=== PATIENT | female | born 1950 | race Caucasian/White ===

== ENCOUNTER 2018-05-17 11:15 | Emergency (ER) | payer OTHER ==
[~2018-05-17] VITALS: Ht 162.6 cm; Wt 84.8 kg
--- NOTE | ~2018-05-17 | EKG ---
[place] [address] [facility] [place] [address] ELECTROCARDIOGRAM REPORT Name: MELISSA WATSON Mehran Room #: [facility]#: [id number] Admission: 05/17/18 Attend Phys: Discharge: 05/17/18 Date of : 50 Report #: [id number] THIS REPORT FOR: //name// [facility] ED Test Date: 2018-05-17 Test Time: 11:20:41 Pat Name: MELISSA WATSON Department: Room: Gender: F Site Administrator: 12 : 1950 Requested By: Arsen Clark Order Number: [id number] MD: Nick Youngblood Measurements Intervals [place] Rate: 77 P: 71 OK: 193 QRS: 64 QRSD: 103 T: 37 QT: 389 QTc: 441 Interpretive Statements Sinus rhythm Compared to ECG 01/21/2012 07:30:29 First degree AV block no longer present Electronically Signed On 05-18-2018 13:47:39 CDT by Nick Youngblood [email or web address] <ELECTRONICALLY SIGNED> By: Nick Youngblood MD, [facility] 05/18/18 1347 1120 1120 Nick Youngblood MD, FACC /EPI
[~2018-05-17 11:15] MED LIST: ADULT LOW DOSE81 MG PO; ALLEGRA ALLERG180 MG PO; AMARYL2 MG PO; BUTALB-APAP-CA1 EACH PO; CARDURA2 MG PO; FELDENE20 MG PO; FISH OIL 1,001000 M1 PO; GLUCOPHAGE500 MG PO; HYDROCODON-ACE1 EAC5 PO; HYDROCODON-ACE1 EAC7 PO; LANSOPRAZOLE30 MG PO; LEVOTHROID125 MCG PO; LISINOPRIL PO; LISINOPRIL-HCT1 EACH PO; LYRICA 75 MG CA75 MG PO; MAGOX 400400 MG PO; NABUMETONE 500500 M1 PO; NAPROSYN500 MG PO; NEURONTIN 300300 M1 PO; NIASPAN ER 101000 M1 PO; NORCO 5-325 TA1 EACH; ROBAXIN 750 MG750 M1 PO; TOPAMAX100 MG PO; VERAPAMIL ER240 MG PO; VIACTIV MULTI-1 EACH PO
[2018-05-17 11:43] LABS: HEMATOCRIT 36.6 % (37.0-47.0); HEMOGLOBIN 12.2 gm/dL (12.0-15.0); MCH 28.7 pg (26.0-34.0); MCHC 33.4 g/dL (28.0-37.0); MCV 85.9 fL (80.0-100.0); RBC 4.26 mil/uL (4.20-5.00); WBC 6.9 thou/uL (4.0-11.0)
[2018-05-17 11:45] LABS: ANION GAP 12 mmol/L (7-16); BUN 18 mg/dL (7-18); CALCIUM 8.7 mg/dL (8.5-10.1); CHLORIDE 99 mmol/L (98-107); CO2 25 mmol/L (21-32); CREATININE 1.2 mg/dL (0.6-1.0); GLUCOSE 203 mg/dL (74-106); POTASSIUM 3.2 mmol/L (3.5-5.1); SODIUM 136 mmol/L (136-145)
[2018-05-17 11:54] LABS: TROPONIN-I <0.06 ng/mL (<0.06)
== END 2018-05-17 15:02 | disposition home or self-care (01) ==
LOC: ER 11:15
PROVIDERS: Emergency Medicine
DX: R55 Syncope and collapse (principal); I10 Essential (primary) hypertension; E11.9 Type 2 diabetes mellitus without complications; Z91.013 Allergy to seafood; Z87.891 Personal history of nicotine dependence; Z90.710 Acquired absence of both cervix and uterus; Z90.89 Acquired absence of other organs

== ENCOUNTER → 2019-10-30 | Outpatient (CLI) | payer OTHER | LOC: SJCVC 11:55 | DX: R55 Syncope and collapse (principal); I10 Essential (primary) hypertension; G45.3 Amaurosis fugax; E78.5 Hyperlipidemia, unspecified; E11.9 Type 2 diabetes mellitus without complications; K21.9 Gastro-esophageal reflux disease without esophagitis; E03.9 Hypothyroidism, unspecified; Z79.82 Long term (current) use of aspirin; Z79.899 Other long term (current) drug therapy; Z87.891 Personal history of nicotine dependence ==

== ENCOUNTER → 2020-03-11 | Outpatient (CLI) | payer OTHER | LOC: SJCVCIMAG 10:37 | DX: G45.3 Amaurosis fugax (principal); R55 Syncope and collapse; I10 Essential (primary) hypertension; E78.5 Hyperlipidemia, unspecified; E11.9 Type 2 diabetes mellitus without complications ==

== ENCOUNTER → 2020-09-21 | Outpatient (CLI) | payer OTHER | LOC: SJCVC 08:09 | PROVIDERS: ATTEND Internal Medicine | DX: R55 Syncope and collapse (principal); I10 Essential (primary) hypertension; E78.5 Hyperlipidemia, unspecified; E11.9 Type 2 diabetes mellitus without complications; I65.23 Occlusion and stenosis of bilateral carotid arteries; K21.9 Gastro-esophageal reflux disease without esophagitis; E03.9 Hypothyroidism, unspecified; G43.909 Migraine, unspecified, not intractable, without status migrainosus; Z87.891 Personal history of nicotine dependence; Z72.89 Other problems related to lifestyle; Z79.82 Long term (current) use of aspirin; Z79.899 Other long term (current) drug therapy ==

== ENCOUNTER 2020-11-03 16:09 | Inpatient (IN) | payer OTHER ==
[~2020-11-03] VITALS: Ht 162.6 cm; Wt 95.3 kg
[2020-11-03 16:10] VITALS: BP 118/58
[2020-11-03 16:28] LABS: HEMATOCRIT 39.3 % (37.0-47.0); HEMOGLOBIN 12.8 gm/dL (12.0-15.0); MCHC 32.5 g/dL (28.0-37.0); MCV 92.1 fL (80.0-100.0); PLATELET COUNT 226 thou/uL (150-400); RBC 4.26 mil/uL (4.20-5.00); RDW 14.3 % (10.5-14.5); WBC 17.3 thou/uL (4.0-11.0)
[2020-11-03 16:52] LABS: ALBUMIN 3.9 g/dL (3.4-5.0); CALCIUM 9.4 mg/dL (8.5-10.1); DIRECT BILIRUBIN 0.1 mg/dL (<0.1-0.2); TOTAL BILIRUBIN 0.5 mg/dL (0.2-1.0); TOTAL PROTEIN 7.4 g/dL (6.4-8.2)
[2020-11-03 16:54] LABS: POTASSIUM 2.9 mmol/L (3.5-5.1)
[2020-11-03 17:04] LABS: URINE BILIRUBIN NEGATIVE (Negative); URINE BLOOD 1+ (Negative); URINE CLARITY CLEAR; URINE COLOR YELLOW; URINE GLUCOSE-RANDOM* NEGATIVE (Negative); URINE KETONES NEGATIVE (Negative); URINE LEUKOCYTES-REFLEX TRACE (Negative); URINE PROTEIN (DIPSTICK) 1+ (Negative); URINE UROBILINOGEN 0.2 E.U./dl (0.2-1.0)
[2020-11-03 17:13] LABS: URINE NITRITE-REFLEX POSITIVE (Negative)
[2020-11-03 17:34] LABS: ABSOLUTE NEUTROPHILS 15.7 thou/uL (1.4-8.2); ANISOCYTOSIS 1+
[2020-11-03 17:44] LABS: BACTERIA-REFLEX >30 Many /HPF (None Seen); CASTS None Seen /LPF (None Seen); CRYSTALS None Seen /LPF (None Seen); SQUAMOUS 0-3 Few /LPF (0-3); URINE RBC 3-10 Few /HPF (0-2); URINE WBC-REFLEX 0-5 Rare /HPF (0-5)
[2020-11-03 20:57] VITALS: BP 136/66
[2020-11-03] MEDS ORDERED: LISINOPRIL-HCT1 EAC1 PO (23:42)
[2020-11-03] MEDS ORDERED: LEVOTHYROXINE100 MC2 PO (23:42)
[2020-11-03] MEDS ORDERED: IRON325 M1 PO (23:43)
[2020-11-03] MEDS ORDERED: PRAVACHOL40 M1 PO (23:54)
[2020-11-04] VITALS (7 sets, daily range): BP systolic 105–136; BP diastolic 52–62
[2020-11-04 06:17] LABS: HEMATOCRIT 35.4 % (37.0-47.0); HEMOGLOBIN 11.4 gm/dL (12.0-15.0); MCH 29.9 pg (26.0-34.0); MCHC 32.3 g/dL (28.0-37.0); MCV 92.6 fL (80.0-100.0); RBC 3.82 mil/uL (4.20-5.00); WBC 14.8 thou/uL (4.0-11.0)
[2020-11-04 06:21] LABS: CALCIUM 8.2 mg/dL (8.5-10.1); MAGNESIUM 2.8 mg/dL (1.8-2.4); POTASSIUM 3.3 mmol/L (3.5-5.1)
--- NOTE | 2020-11-04 17:40 | NUR ---
70-year-old female with a history of hypertension, hypothyroidism, hyperlipidemia, and DM 2 who presents to the ER with c/o N/V and Fever/chills that began this morning at ~0200 after waking up. Reports 3-4 episodes of N/V. States T-max 102. PCR COVID Negative in the ED. Patient has been admitted to Dr. Chaparro with: Sepsis, Hypokalemia/Hypomagnesaemia, N/V gastroenteritis, Weakness with an actual PT eval order in the record, DM@, HT, HLD, and Hypothyroidism. Per ED noted patient to be A&O x4. Spouse David where patient also resides is listed as next of kin and notification constitution party at [phone]. CM will continue to follow for discharge needs
--- NOTE | 2020-11-04 19:52 | NUR ---
Admitted per ER with hx of UTI, n/v, hypokalemia. Also has hx of DM, hypothyroidism, HTN, HLD. Alert and orientated X4. Calm, cooperative and compliant. Breath sounds clear. Reg HR auscultated. Color pink with brisk capillary refill and palpable peripheral pulses. Independent with voiding. Voided clear yellow urine per toilet. Active bowel sounds over soft, rounded abdomen. States she fell yesterday d/t being sick. Ambulates with slow, steady gait occassionally holding on to furniture. States she has no pain. No s/o distress.
--- NOTE | 2020-11-05 05:05 | NUR ---
VSS-AFEBRILE. LUNGS CLEAR, ROOM AIR. RESTED WELL THROUGH NIGHT WITH FEW NEEDS. NO REPORTED NAUSEA/VOMITING OR PAIN OVERNIGHT. OOB WITH SBA TO USE RESTROOM, STEADY ON FEET. NO DIARRHEA THIS SHIFT. FALL PRECAUTIONS IN PLACE.
[2020-11-05 06:57] LABS: HEMOGLOBIN 10.1 gm/dL (12.0-15.0); MCH 30.1 pg (26.0-34.0); MCHC 32.5 g/dL (28.0-37.0); MCV 92.6 fL (80.0-100.0); RBC 3.35 mil/uL (4.20-5.00); RDW 14.3 % (10.5-14.5); WBC 9.2 thou/uL (4.0-11.0)
[2020-11-05 07:13] LABS: CREATININE 0.7 mg/dL (0.6-1.0); POTASSIUM 3.1 mmol/L (3.5-5.1)
[2020-11-05 07:35] VITALS: BP 118/63
[2020-11-05] MEDS ORDERED: CEFUROXIME500 MG PO (11:05)
[2020-11-05 12:20] VITALS: BP 118/63
--- NOTE | 2020-11-05 13:54 | NUR ---
Assumed pt care at 7am.Assessment completed.vss.Pt up with sba to bathroom. Pt tolerated meds and breakfast.Dr Chaparro here,dc order noted.Dc summary compile and reviewed with pt.Saline lock dc'd prior to dc home per wc at 1230 with .
== END 2020-11-05 13:19 | disposition home or self-care (01) | DRG 872 ==
LOC: ER 16:09 → EROBS 18:57 → 4W 11-04 16:41
PROVIDERS: Nurse Practitioner; ADMIT Hospitalist; ATTEND Hospitalist
DX: A41.9 Sepsis, unspecified organism (principal); N39.0 Urinary tract infection, site not specified; E11.9 Type 2 diabetes mellitus without complications; I10 Essential (primary) hypertension; E87.6 Hypokalemia; E03.9 Hypothyroidism, unspecified; E78.5 Hyperlipidemia, unspecified; E83.42 Hypomagnesemia; K52.9 Noninfective gastroenteritis and colitis, unspecified; Z20.822 Contact with and (suspected) exposure to COVID-19; Z90.710 Acquired absence of both cervix and uterus; Z91.013 Allergy to seafood; Z87.891 Personal history of nicotine dependence; Z79.899 Other long term (current) drug therapy; Z79.82 Long term (current) use of aspirin; Z88.6 Allergy status to analgesic agent
CPT/HCPCS: 10040

== ENCOUNTER → 2020-11-21 | Outpatient (CLI) | payer OTHER ==
[~2020-11-21] MED LIST changes: +ADVIL200 M1 PO; +CEFUROXIME500 MG PO; +IRON325 M1 PO; +LEVOTHYROXINE100 MC2 PO; +LISINOPRIL-HCT1 EAC1 PO; +PRAVACHOL40 M1 PO; +VIACTIV 650 MG1 EACH PO
== END ==
LOC: LAB 10:32
PROVIDERS: ATTEND Ophthalmology
DX: Z01.812 Encounter for preprocedural laboratory examination (principal); Z20.822 Contact with and (suspected) exposure to COVID-19

== ENCOUNTER 2020-11-24 06:04 | Day surgery (SDC) | payer OTHER ==
[~2020-11-24] VITALS: Ht 162.6 cm; Wt 83.9 kg
--- NOTE | ~2020-11-24 | O ---
[facility] [place] [address] OPERATIVE REPORT Name: MELISSA WATSON Room #: 150-1 [facility]..#: [id number] Admission: 11/24/20 Attend Phys: Donell Wilkins MD Discharge: Date of : 50 Report #: [id number] THIS REPORT FOR: cc: Luz Marina Mathews NP, Deana Marie NP White, William L. MD ~ DATE OF SERVICE: 11/24/2020 LOCOMOTIVE OPERATOR HELPER: None. PREOPERATIVE DIAGNOSIS: Bilateral upper lid ptosis with superior visual field defects both eyes. POSTOPERATIVE DIAGNOSIS: Bilateral upper lid ptosis with superior visual field defects both eyes. OPERATION PERFORMED: Bilateral upper lid functional ptosis repair. LOCOMOTIVE OPERATOR HELPER: None. ANESTHESIA: Local with IV sedation. COMPLICATIONS: None. INDICATIONS FOR PROCEDURE: This patient has bilateral upper lid ptosis with superior visual field loss both eyes. Visual field testing demonstrates dense superior visual defects. Retesting with the upper lid elevated shows an improvement in visual field loss of over 30% and in excess of 12 degrees. The current procedure is being undertaken in order to improve the patient's visual function. Informed consent was obtained to include but not limited to the risk of loss of vision, bleeding, infection, scarring, failure to improve the problem and need for further surgery, such as adjustment of lid height. DESCRIPTION OF PROCEDURE: The patient was taken to the operating room, where 2% Xylocaine with epinephrine mixed with equal parts of 0.75% Marcaine with Wydase was administered transcutaneously to each upper lid. The patient was then prepped and draped in the usual sterile fashion. An upper lid crease incision was then made bilaterally and the dissection was carried down until the orbital septum was identified. The orbital septum was then cleared and the preaponeurotic fat identified. The levator aponeurosis was then disinserted from the anterior surface of the tarsal plate and dissected free in the avascular Flores's muscle plane. The aponeurosis was then advanced [address] [address] OPERATIVE REPORT Name: MELISSA WATSON Mehran Room #: 150-1 [facility]..#: [id number] Admission: 11/24/20 Attend Phys: Donell Wilkins MD Discharge: Date of : 50 Report #: [id number] and reattached to the anterior surface of the tarsal plate with interrupted mattress 6-0 Novafil sutures on each side, adjusting for height and contour. The redundant aponeurosis was then amputated. The incision was then closed with multiple interrupted 6-0 chromic sutures that were used to recreate an upper lid crease. The skin was closed with a running 6-0 plain gut suture. The wound was then cleaned and dressed with ophthalmic antibiotic ointment followed by a Telfa pad. The patient was transported to the recovery area, having tolerated the procedure well with no anesthesia or operative complications being noted. By: [id number] MD mingo Collins
[2020-11-24 07:13] VITALS: BP 142/56
== END 2020-11-24 09:22 | disposition home or self-care (01) ==
LOC: TBA 06:04 → OR 06:04
PROVIDERS: ATTEND Ophthalmology
DX: H02.413 Mechanical ptosis of bilateral eyelids (principal); H53.462 Homonymous bilateral field defects, left side; H53.461 Homonymous bilateral field defects, right side; I10 Essential (primary) hypertension; E11.9 Type 2 diabetes mellitus without complications; E78.5 Hyperlipidemia, unspecified; E03.9 Hypothyroidism, unspecified; Z98.890 Other specified postprocedural states; Z79.899 Other long term (current) drug therapy; Z85.828 Personal history of other malignant neoplasm of skin; Z90.710 Acquired absence of both cervix and uterus
CPT/HCPCS: 50010; 50101; 50386; 50398; 51636; 56528; 56531; 62110; 62850; 70005

== ENCOUNTER → 2021-03-10 | Outpatient (CLI) | payer OTHER | LOC: SJCVCIMAG 08:58 | PROVIDERS: ATTEND Nuclear Medicine Nuclear Cardiology | DX: I70.8 Atherosclerosis of other arteries (principal); I73.9 Peripheral vascular disease, unspecified; M79.604 Pain in right leg; M79.605 Pain in left leg; E11.51 Type 2 diabetes mellitus with diabetic peripheral angiopathy without gangrene; I77.1 Stricture of artery; R55 Syncope and collapse; I65.23 Occlusion and stenosis of bilateral carotid arteries; K21.9 Gastro-esophageal reflux disease without esophagitis; E03.9 Hypothyroidism, unspecified; Z90.710 Acquired absence of both cervix and uterus; Z98.890 Other specified postprocedural states; Z79.82 Long term (current) use of aspirin; Z79.84 Long term (current) use of oral hypoglycemic drugs; Z79.899 Other long term (current) drug therapy; Z87.891 Personal history of nicotine dependence; Z82.49 Family history of ischemic heart disease and other diseases of the circulatory system ==

== ENCOUNTER → 2021-04-03 | Outpatient (CLI) | payer OTHER | LOC: SJCVCIMAG 08:55 | PROVIDERS: ATTEND Internal Medicine | DX: I44.0 Atrioventricular block, first degree (principal); G45.3 Amaurosis fugax; R55 Syncope and collapse; I10 Essential (primary) hypertension; E78.5 Hyperlipidemia, unspecified; E11.9 Type 2 diabetes mellitus without complications; E03.9 Hypothyroidism, unspecified; G43.909 Migraine, unspecified, not intractable, without status migrainosus; Z79.82 Long term (current) use of aspirin; Z79.84 Long term (current) use of oral hypoglycemic drugs; Z79.899 Other long term (current) drug therapy; Z87.891 Personal history of nicotine dependence; Z72.89 Other problems related to lifestyle ==

== ENCOUNTER → 2021-11-29 | Outpatient (CLI) | payer OTHER ==
[~2021-11-29] MED LIST changes: -GLUCOPHAGE500 MG PO; +METFORMIN HCL500 MG PO; +METHOCARBAMOL750 MG PO; -PRAVACHOL40 M1 PO; +PRAVACHOL40 MG PO; -ROBAXIN 750 MG750 M1 PO
== END ==
LOC: LAB 10:29
PROVIDERS: ATTEND Student in an Organized Health Care Education/Training Program
DX: Z20.822 Contact with and (suspected) exposure to COVID-19 (principal)

== ENCOUNTER → 2021-11-30 | Day surgery (SDC) | payer OTHER ==
[~2021-11-30] VITALS: Ht 162.6 cm; Wt 86.2 kg
--- NOTE | ~2021-11-30 | O ---
[facility] [place] [address] OPERATIVE REPORT Name: MELISSA WATSON Room #: [facility]#: [id number] Admission: 11/30/21 Attend Phys: Donell Wilkins MD Discharge: Date of : 50 Report #: [id number] THIS REPORT FOR: cc: FAM - Family physician unknown FAM - Family physician unknown Donell Wilkins MD ~ cc: Nataly Garcia DATE OF SERVICE: 11/30/2021 SURGEON: Donell Wilkins MD ELECTRONIC WARFARE SPECIALIST: None. PREOPERATIVE DIAGNOSIS: Bilateral upper lid dermatochalasia with superior visual field defect. POSTOPERATIVE DIAGNOSIS: Bilateral upper lid dermatochalasia with superior visual field defect. OPERATION PERFORMED: Bilateral upper lid functional blepharoplasty. ANESTHESIA: Local with IV sedation. COMPLICATIONS: None. INDICATIONS FOR SURGERY: This patient has acquired upper lid dermatochalasia with superior visual field loss both eyes because of excessive upper lid tissues to include skin and fat. Visual field testing demonstrates dense superior visual defects. Retesting with the upper lid elevated shows an improvement in visual field loss of over 30% and in excess of 12 degrees. The current procedures are undertaken in order to improve the patient's visual function. Informed consent was obtained to include but not limited to the loss of vision, bleeding, infection, scarring, failure to improve the problem and need for further surgery. DESCRIPTION OF OPERATION: The patient was taken to the operating room, where 2% Xylocaine with epinephrine mixed with equal parts of 0.75% Marcaine with Wydase was administered transcutaneously to each upper lid. The patient was then prepped and draped in the usual sterile fashion and a skin-marking pen was then utilized to outline an upper lid crease that was symmetrical on each side. Graefe forceps were then used to quantitate the redundant upper lid skin and it was similarly outlined. The incisions were then made with Pallavi scissors and a skin-muscle flap removed from each side with high-temp cautery. Hemostasis was achieved with the monopolar cautery as it was throughout the case. The [address] [address] OPERATIVE REPORT Name: MELISSA WATSON Room #: [facility] M.R.#: [id number] Admission: 11/30/21 Attend Phys: Donell Wilkins MD Discharge: Date of : 50 Report #: [id number] orbital septum was then identified and the central and medial fat pads were inspected. The redundant soft tissue was then sculpted with the monopolar cautery. The upper lid crease was then reformed with tightening of the pretarsal orbicularis muscle. The upper lid crease was then further reformed with multiple interrupted 6-0 chromic sutures. The skin was then closed with a running 6-0 plain gut suture. The wound was then cleaned and dressed with ophthalmic antibiotic ointment and a nonstick dressing. The patient was transported to the recovery area, where cold compresses were applied, having tolerated the procedure well with no anesthetic or operative complications being noted. By: [id number] Donell Wilkins MD /nt
[2021-11-30 07:00] VITALS: BP 152/68
== END | disposition home or self-care (01) ==
LOC: OR 06:21
PROVIDERS: ATTEND Ophthalmology
DX: H02.831 Dermatochalasis of right upper eyelid (principal); H02.834 Dermatochalasis of left upper eyelid; H53.462 Homonymous bilateral field defects, left side; H53.461 Homonymous bilateral field defects, right side; I10 Essential (primary) hypertension; E78.5 Hyperlipidemia, unspecified; E11.9 Type 2 diabetes mellitus without complications; K21.9 Gastro-esophageal reflux disease without esophagitis; G43.909 Migraine, unspecified, not intractable, without status migrainosus; Z98.890 Other specified postprocedural states; Z79.899 Other long term (current) drug therapy; Z85.828 Personal history of other malignant neoplasm of skin; Z87.891 Personal history of nicotine dependence; Z79.82 Long term (current) use of aspirin
CPT/HCPCS: 50010; 50101; 50386; 50398; 51636; 56531; 62110; 62850; 70005